=== PATIENT | female | born 1955 | race Caucasian/White ===

== ENCOUNTER 2018-09-26 14:58 | Inpatient (IN) | payer OTHER ==
[2018-09-26] MEDS: SODIUM CHLORIDE 0.9% 1L BAG IV* (15:45)
[2018-09-26] MEDS: PIPER-TAZO 3.375 GM IV (PMX) 100 ML IVPB (15:45)
[2018-09-26 15:47] LABS: ADD MAN DIFF? NO
[2018-09-26 15:52] LABS: BASOPHILS % 0.4 % (0.0-2.0); EOSINOPHILS % 0.3 % (0.0-7.0); HEMATOCRIT 42.3 % (37.0-47.0); HEMOGLOBIN 13.3 g/dl (12.0-16.0); LYMPHOCYTES % 14.3 % (15.0-51.0); MEAN CORPUSCULAR HEMOGLOBIN 27.6 pg (29.0-33.0); MEAN CORPUSCULAR HGB CONC 31.4 g/dl (32.0-37.0); MEAN CORPUSCULAR VOLUME 87.8 fl (82.0-101.0); MEAN PLATELET VOLUME 8.6 fl (7.4-10.4); MONOCYTE # 0.4 10^3/ul (0.3-0.9); MONOCYTES % 5.5 % (0.0-11.0); NEUTROPHIL # 5.5 10^3/ul (1.6-7.5); NEUTROPHILS % 78.6 % (39.0-77.0); PLATELET COUNT 298 10^3/UL (140-415); RED BLOOD COUNT 4.82 10^6/ul (4.20-5.40); RED CELL DISTRIBUTION WIDTH 16.4 % (11.5-14.5)
[2018-09-26 15:52] LABS: WHITE BLOOD COUNT 7.1 10^3/ul (4.8-10.8)
[2018-09-26 16:06] LABS: INR 0.85; PROTIME 11.7 Sec (11.9-14.9); PT RATIO 0.9
[2018-09-26 16:07] LABS: PARTIAL THROMBOPLASTIN TIME 25.8 Sec (23.0-35.0)
[2018-09-26 16:10] LABS: LACTIC ACID 1.5 mmol/L (0.5-2.0)
[2018-09-26 16:10] LABS: ALANINE AMINOTRANSFERASE 92 IU/L (13-69); ALBUMIN 3.7 g/dl (3.3-4.9); ALKALINE PHOSPHATASE 239 IU/L (42-121); ANION GAP 19 (5-13); ASPARTATE AMINO TRANSFERASE 155 IU/L (15-46); BILIRUBIN,INDIRECT 0.1 mg/dl (0-1.1); BILIRUBIN,TOTAL 0.1 mg/dl (0.2-1.3); BLOOD UREA NITROGEN 14 mg/dl (7-20); CALCIUM 9.5 mg/dl (8.4-10.2); CARBON DIOXIDE 18 mmol/L (21-31); CHLORIDE 98 mmol/L (97-110); CREATININE 0.63 mg/dl (0.44-1.00); Estimated GFR > 60 mL/min (>60); POTASSIUM 3.8 mmol/L (3.5-5.1); TOTAL PROTEIN 8.3 g/dl (6.1-8.1)
[2018-09-26 16:15] LABS: GLUCOSE 604 mg/dl (70-220); SODIUM 135 mmol/L (135-144)
[2018-09-26 16:23] LABS: TROPONIN-I < 0.012 ng/ml (0.000-0.120)
[2018-09-26 17:15] LABS: ADD UMIC YES; UR ASCORBIC ACID NEGATIVE (NEGATIVE); UR BILIRUBIN (Dip) NEGATIVE (NEGATIVE); UR BLOOD (Dip) 1+ mg/dL (NEGATIVE); UR CLARITY SLIGHTLY CLOUDY (CLEAR); UR COLOR STRAW (YELLOW); UR GLUCOSE (Dip) 3+ mg/dL (NEGATIVE); UR KETONES (Dip) 2+ mg/dL (NEGATIVE); UR LEUKOCYTE ESTERASE (Dip) NEGATIVE Leu/ul (NEGATIVE); UR NITRITE (Dip) NEGATIVE (NEGATIVE); UR RBC 7 /HPF (0-5); UR SPECIFIC GRAVITY (Dip) 1.025 (1.003-1.030); UR TOTAL PROTEIN (Dip) 1+ mg/dl (NEGATIVE); UR UROBILINOGEN (Dip) NEGATIVE (NEGATIVE); UR WBC 6 /HPF (0-5)
[2018-09-26] MEDS: VANCOMYCIN 1 GM (PMX) 250 ML IVPB (17:52)
[2018-09-26] MEDS: INSULIN LISPRO 100 UNIT/ML VIAL SC (17:53)
[2018-09-26] MEDS ORDERED: ACETAMINOPHEN 325 MG TAB PO ×2 (18:00→18:30)
[2018-09-26] MEDS ORDERED: ONDANSETRON 4 MG INJ IV (18:00)
[2018-09-26] MEDS ORDERED: VANCOMYCIN IV PER PHARMACY XX (18:30)
[2018-09-26] MEDS ORDERED: NACL 0.9% 3 ML SYG IV (18:30)
[2018-09-26] MEDS ORDERED: GLUCAGON 1 MG INJ IM (19:00)
[2018-09-26] MEDS ORDERED: GLUCOSE GEL 15 GRAM TUBE BUCCAL (19:00)
[2018-09-26] MEDS ORDERED: DEXTROSE 50% 50 ML SYRINGE IV ×2 (19:00)
[2018-09-26] MEDS ORDERED: GLUCOSE GEL 15 GRAM TUBE PO ×2 (19:00)
[2018-09-26] MEDS: INSULIN GLARGINE [LANTus] (100 UNITS/ML) SYG SC (20:03)
[2018-09-26] MEDS: INSULIN ASPART [NOVOLOG] 3 ML PEN SC (20:05)
[2018-09-26 22:19] LABS: LACTIC ACID 2.3 mmol/L (0.5-2.0)
[2018-09-27] MEDS: traMADol 50 MG TAB PO ×3 (00:50→20:59)
[2018-09-27] MEDS: PIPER-TAZO 3.375 GM IV (PMX) 100 ML IVPB ×4 (00:50→22:41)
[2018-09-27] MEDS: HEPARIN 5,000 UNIT/1 ML VIAL SC ×2 (01:08→06:22)
[2018-09-27] MEDS: ACCU-CHEK XX (02:02)
[2018-09-27] MEDS: INSULIN ASPART [NOVOLOG] 3 ML PEN SC ×9 (04:57→21:04)
[2018-09-27] MEDS: VANCOMYCIN 750 MG (PMX) 250 ML IVPB ×2 (06:12→15:44)
[2018-09-27 06:22] LABS: ADD MAN DIFF? NO
[2018-09-27 06:32] LABS: BASOPHILS % 0.3 % (0.0-2.0); EOSINOPHILS % 0.5 % (0.0-7.0); HEMATOCRIT 38.2 % (37.0-47.0); LYMPHOCYTES # 0.9 10^3/ul (0.8-2.9); LYMPHOCYTES % 14.6 % (15.0-51.0); MEAN CORPUSCULAR HEMOGLOBIN 27.5 pg (29.0-33.0); MEAN CORPUSCULAR HGB CONC 31.4 g/dl (32.0-37.0); MEAN CORPUSCULAR VOLUME 87.6 fl (82.0-101.0); MEAN PLATELET VOLUME 9.3 fl (7.4-10.4); MONOCYTE # 0.4 10^3/ul (0.3-0.9); MONOCYTES % 6.1 % (0.0-11.0); NEUTROPHIL # 4.6 10^3/ul (1.6-7.5); NEUTROPHILS % 77.7 % (39.0-77.0); PLATELET COUNT 259 10^3/UL (140-415); RED BLOOD COUNT 4.36 10^6/ul (4.20-5.40); RED CELL DISTRIBUTION WIDTH 16.5 % (11.5-14.5)
[2018-09-27 07:17] LABS: ALANINE AMINOTRANSFERASE 96 IU/L (13-69); ALBUMIN 3.1 g/dl (3.3-4.9); ALBUMIN/GLOBULIN RATIO 0.79; ALKALINE PHOSPHATASE 192 IU/L (42-121); ANION GAP 12 (5-13); ASPARTATE AMINO TRANSFERASE 158 IU/L (15-46); BILIRUBIN,INDIRECT 0.1 mg/dl (0-1.1); BILIRUBIN,TOTAL 0.1 mg/dl (0.2-1.3); BLOOD UREA NITROGEN 17 mg/dl (7-20); CALCIUM 8.8 mg/dl (8.4-10.2); CARBON DIOXIDE 26 mmol/L (21-31); CHLORIDE 95 mmol/L (97-110); CREATININE 0.63 mg/dl (0.44-1.00); Estimated GFR > 60 mL/min (>60); MAGNESIUM 1.5 mg/dl (1.7-2.5); PHOSPHORUS 3.5 mg/dl (2.5-4.9); POTASSIUM 3.8 mmol/L (3.5-5.1); SODIUM 133 mmol/L (135-144)
[2018-09-27 07:20] LABS: GLUCOSE 535 mg/dl (70-220)
[2018-09-27 07:25] LABS: HEMOGLOBIN A1C 12.6 % (0-5.9)
[2018-09-27] MEDS: SOD CHLORIDE 0.9% 500 ML IV (07:50)
[2018-09-27 11:08] LABS: LACTIC ACID 5.6 mmol/L (0.5-2.0)
[2018-09-27 12:06] LABS: C-REACTIVE PROTEIN 1.7 mg/dl (0.0-0.9)
[2018-09-27] MEDS: ASPIRIN (EC) 81 MG TAB PO (13:13)
[2018-09-27 13:14] LABS: ERYTHROCYTE SEDIMENTATION RATE 43 mm/Hr (0-30)
[2018-09-27] MEDS: INSULIN GLARGINE [LANTus] (100 UNITS/ML) SYG SC (20:00)
[2018-09-27] MEDS: LACTOBACILLUS RHAMNOSUS CAP PO (20:56)
[2018-09-27] MEDS: ESCITALOPRAM 10 MG TAB PO (20:56)
[2018-09-28] MEDS: ACCU-CHEK XX (02:00)
[2018-09-28] MEDS: VANCOMYCIN 750 MG (PMX) 250 ML IVPB (03:22)
[2018-09-28 03:44] LABS: VANCOMYCIN,TROUGH 9.7 ug/ml (10.0-20.0)
[2018-09-28] MEDS: PIPER-TAZO 3.375 GM IV (PMX) 100 ML IVPB ×3 (05:35→21:41)
[2018-09-28] MEDS: ASPIRIN (EC) 81 MG TAB PO (07:54)
[2018-09-28] MEDS: LACTOBACILLUS RHAMNOSUS CAP PO ×2 (07:54→20:31)
[2018-09-28] MEDS: SODIUM HYPOCHLORITE (1/40) 1 LITER BTL IRR (07:54)
[2018-09-28] MEDS: ESCITALOPRAM 10 MG TAB PO (07:54)
[2018-09-28] MEDS: INSULIN ASPART [NOVOLOG] 3 ML PEN SC ×7 (08:15→20:42)
[2018-09-28] MEDS: ENOXAPARIN 30 MG/0.3 ML SYG SC (08:23)
[2018-09-28 08:44] LABS: ADD MAN DIFF? NO
[2018-09-28 08:55] LABS: WHITE BLOOD COUNT 5.2 10^3/ul (4.8-10.8)
[2018-09-28 08:55] LABS: BASOPHILS % 0.6 % (0.0-2.0); EOSINOPHILS # 0.1 10^3/ul (0.0-0.5); HEMATOCRIT 36.4 % (37.0-47.0); HEMOGLOBIN 11.6 g/dl (12.0-16.0); LYMPHOCYTES # 1.2 10^3/ul (0.8-2.9); LYMPHOCYTES % 22.6 % (15.0-51.0); MEAN CORPUSCULAR HEMOGLOBIN 27.3 pg (29.0-33.0); MEAN CORPUSCULAR HGB CONC 31.9 g/dl (32.0-37.0); MEAN CORPUSCULAR VOLUME 85.6 fl (82.0-101.0); MEAN PLATELET VOLUME 9.2 fl (7.4-10.4); MONOCYTE # 0.4 10^3/ul (0.3-0.9); MONOCYTES % 7.4 % (0.0-11.0); NEUTROPHIL # 3.5 10^3/ul (1.6-7.5); NEUTROPHILS % 67.4 % (39.0-77.0); PLATELET COUNT 233 10^3/UL (140-415); RED BLOOD COUNT 4.25 10^6/ul (4.20-5.40); RED CELL DISTRIBUTION WIDTH 16.7 % (11.5-14.5)
[2018-09-28 10:04] LABS: ALANINE AMINOTRANSFERASE 108 IU/L (13-69); ALBUMIN 3.1 g/dl (3.3-4.9); ALBUMIN/GLOBULIN RATIO 0.79; ALKALINE PHOSPHATASE 180 IU/L (42-121); ANION GAP 11 (5-13); ASPARTATE AMINO TRANSFERASE 179 IU/L (15-46); BILIRUBIN,INDIRECT 0.1 mg/dl (0-1.1); BILIRUBIN,TOTAL 0.1 mg/dl (0.2-1.3); BLOOD UREA NITROGEN 15 mg/dl (7-20); CALCIUM 8.6 mg/dl (8.4-10.2); CARBON DIOXIDE 26 mmol/L (21-31); CHLORIDE 98 mmol/L (97-110); CHOL/HDL RATIO 3.2 RATIO; CHOLESTEROL 134 mg/dl (100-200); CREATININE 0.52 mg/dl (0.44-1.00); Estimated GFR > 60 mL/min (>60); GLUCOSE 346 mg/dl (70-220); HDL CHOLESTEROL 41 mg/dl (35-98); LDL CHOLESTEROL,CALCULATED 62 mg/dl; POTASSIUM 3.3 mmol/L (3.5-5.1); SODIUM 135 mmol/L (135-144); TRIGLYCERIDES 154 mg/dl (0-149)
[2018-09-28] MEDS ORDERED: NICOTINE (14 MG/24 HR) PATCH TRANSDERM (12:00)
[2018-09-28] MEDS: traMADol 50 MG TAB PO ×2 (12:15→20:31)
[2018-09-28] MEDS: POTASSIUM CHLORIDE 20 MEQ POWDER FOR ORAL SOLN PO (12:46)
[2018-09-28] MEDS: VANCOMYCIN 1 GM 250 ML IVPB (16:43)
[2018-09-28] MEDS: INSULIN GLARGINE [LANTus] (100 UNITS/ML) SYG SC (20:41)
[2018-09-29] MEDS: ACCU-CHEK XX (02:00)
[2018-09-29] MEDS: VANCOMYCIN 1 GM 250 ML IVPB ×2 (03:07→16:41)
[2018-09-29] MEDS: PIPER-TAZO 3.375 GM IV (PMX) 100 ML IVPB ×3 (06:16→21:25)
[2018-09-29 06:27] LABS: ADD MAN DIFF? NO; HAAIG REFLEX REFLEX FILED
[2018-09-29 06:30] LABS: WHITE BLOOD COUNT 5.1 10^3/ul (4.8-10.8)
[2018-09-29 06:30] LABS: BASOPHILS % 0.6 % (0.0-2.0); EOSINOPHILS # 0.1 10^3/ul (0.0-0.5); HEMATOCRIT 35.8 % (37.0-47.0); HEMOGLOBIN 11.2 g/dl (12.0-16.0); LYMPHOCYTES # 1.3 10^3/ul (0.8-2.9); MEAN CORPUSCULAR HEMOGLOBIN 27.6 pg (29.0-33.0); MEAN CORPUSCULAR HGB CONC 31.3 g/dl (32.0-37.0); MEAN CORPUSCULAR VOLUME 88.2 fl (82.0-101.0); MEAN PLATELET VOLUME 8.9 fl (7.4-10.4); MONOCYTE # 0.5 10^3/ul (0.3-0.9); MONOCYTES % 9.6 % (0.0-11.0); NEUTROPHIL # 3.2 10^3/ul (1.6-7.5); NEUTROPHILS % 62.8 % (39.0-77.0); PLATELET COUNT 207 10^3/UL (140-415); RED BLOOD COUNT 4.06 10^6/ul (4.20-5.40); RED CELL DISTRIBUTION WIDTH 16.9 % (11.5-14.5)
[2018-09-29 06:51] LABS: AMMONIA < 9 umol/l (9-30)
[2018-09-29 06:52] LABS: ALANINE AMINOTRANSFERASE 113 IU/L (13-69); ALBUMIN 2.9 g/dl (3.3-4.9); ALBUMIN/GLOBULIN RATIO 0.74; ALKALINE PHOSPHATASE 161 IU/L (42-121); ANION GAP 6 (5-13); ASPARTATE AMINO TRANSFERASE 174 IU/L (15-46); BILIRUBIN,INDIRECT 0.1 mg/dl (0-1.1); BILIRUBIN,TOTAL 0.1 mg/dl (0.2-1.3); BLOOD UREA NITROGEN 15 mg/dl (7-20); CALCIUM 8.6 mg/dl (8.4-10.2); CARBON DIOXIDE 27 mmol/L (21-31); CHLORIDE 103 mmol/L (97-110); CREATININE 0.55 mg/dl (0.44-1.00); Estimated GFR > 60 mL/min (>60); GLUCOSE 169 mg/dl (70-220); POTASSIUM 3.3 mmol/L (3.5-5.1); SODIUM 136 mmol/L (135-144); TOTAL PROTEIN 6.8 g/dl (6.1-8.1)
[2018-09-29 07:25] LABS: HEPATITIS B SURFACE ANTIGEN NEGATIVE (NEGATIVE)
[2018-09-29 07:43] LABS: HEPATITIS B CORE ANTIBODY NEGATIVE (NEGATIVE)
[2018-09-29 07:44] LABS: HEPATITIS C VIRAL ANTIBODY REACTIVE (NEGATIVE)
[2018-09-29] MEDS: INSULIN ASPART [NOVOLOG] 3 ML PEN SC ×7 (07:55→22:00)
[2018-09-29] MEDS ORDERED: AMMONIUM LACTATE 5% TOP (09:00)
[2018-09-29] MEDS: POTASSIUM CHLORIDE 20 MEQ POWDER FOR ORAL SOLN PO (09:00)
[2018-09-29] MEDS: ASPIRIN (EC) 81 MG TAB PO (09:00)
[2018-09-29] MEDS: LACTOBACILLUS RHAMNOSUS CAP PO ×2 (09:00→21:24)
[2018-09-29] MEDS: ESCITALOPRAM 10 MG TAB PO (09:00)
[2018-09-29] MEDS: AMMONIUM LACTATE 12% 225 GM LOT TOP (09:00)
[2018-09-29] MEDS: SODIUM HYPOCHLORITE (1/40) 1 LITER BTL IRR (09:01)
[2018-09-29] MEDS ORDERED: FENTAnyl 50 MCG/ML VIAL (11:44)
[2018-09-29] MEDS ORDERED: MIDAZOLAM 1 MG/ML 2 ML INJ ×2 (11:44→12:58)
[2018-09-29] MEDS ORDERED: HEPARIN 1000 UNITS/ML 10 ML INJ (11:57)
[2018-09-29] MEDS ORDERED: HEPARIN 1000 UNITS/NS (A-LINE) 1,000 ML (12:06)
[2018-09-29] MEDS ORDERED: IODIXANOL LOCM 100 ML BTL (12:06)
[2018-09-29] MEDS ORDERED: LIDOCAINE 1% (MDV) 20 ML INJ (12:06)
[2018-09-29] MEDS: MIDAZOLAM 1 MG/ML 2 ML INJ IV (13:32)
[2018-09-29] MEDS: POTASSIUM CHLORIDE 100 ML IVPB (14:04)
[2018-09-29] MEDS: traMADol 50 MG TAB PO ×2 (14:37→21:17)
[2018-09-29] MEDS: INFLUENZA VIRUS VACCINE 0.5 ML (DISPENSING) IM* (14:42)
[2018-09-29] MEDS: ENOXAPARIN 30 MG/0.3 ML SYG SC (15:27)
[2018-09-29] MEDS: ZOLPIDEM 5 MG TAB PO (21:17)
[2018-09-29] MEDS: INSULIN GLARGINE [LANTus] (100 UNITS/ML) SYG SC (22:10)
[2018-09-30] MEDS: ACCU-CHEK XX (02:36)
[2018-09-30] MEDS: INSULIN ASPART [NOVOLOG] 3 ML PEN SC ×8 (02:44→21:00)
[2018-09-30 03:45] LABS: ADD MAN DIFF? NO
[2018-09-30 04:09] LABS: WHITE BLOOD COUNT 5.2 10^3/ul (4.8-10.8)
[2018-09-30 04:09] LABS: BASOPHILS % 0.4 % (0.0-2.0); EOSINOPHILS # 0.1 10^3/ul (0.0-0.5); HEMATOCRIT 35.6 % (37.0-47.0); LYMPHOCYTES # 0.9 10^3/ul (0.8-2.9); LYMPHOCYTES % 17.8 % (15.0-51.0); MEAN CORPUSCULAR HEMOGLOBIN 27.4 pg (29.0-33.0); MEAN CORPUSCULAR HGB CONC 30.9 g/dl (32.0-37.0); MEAN CORPUSCULAR VOLUME 88.6 fl (82.0-101.0); MEAN PLATELET VOLUME 9.2 fl (7.4-10.4); MONOCYTE # 0.4 10^3/ul (0.3-0.9); MONOCYTES % 6.8 % (0.0-11.0); NEUTROPHIL # 3.8 10^3/ul (1.6-7.5); NEUTROPHILS % 73.4 % (39.0-77.0); PLATELET COUNT 190 10^3/UL (140-415); RED BLOOD COUNT 4.02 10^6/ul (4.20-5.40); RED CELL DISTRIBUTION WIDTH 16.9 % (11.5-14.5)
[2018-09-30 04:10] LABS: ALANINE AMINOTRANSFERASE 149 IU/L (13-69); ALBUMIN 2.9 g/dl (3.3-4.9); ALBUMIN/GLOBULIN RATIO 0.74; ALKALINE PHOSPHATASE 165 IU/L (42-121); ANION GAP 7 (5-13); ASPARTATE AMINO TRANSFERASE 230 IU/L (15-46); BILIRUBIN,INDIRECT 0.1 mg/dl (0-1.1); BILIRUBIN,TOTAL 0.1 mg/dl (0.2-1.3); BLOOD UREA NITROGEN 16 mg/dl (7-20); CALCIUM 8.6 mg/dl (8.4-10.2); CARBON DIOXIDE 28 mmol/L (21-31); CHLORIDE 102 mmol/L (97-110); CREATININE 0.66 mg/dl (0.44-1.00); Estimated GFR > 60 mL/min (>60); GLUCOSE 297 mg/dl (70-220); POTASSIUM 3.3 mmol/L (3.5-5.1); SODIUM 137 mmol/L (135-144); TOTAL PROTEIN 6.8 g/dl (6.1-8.1)
[2018-09-30 04:11] LABS: MAGNESIUM 1.6 mg/dl (1.7-2.5)
[2018-09-30] MEDS: VANCOMYCIN 1 GM 250 ML IVPB ×2 (04:17→16:12)
[2018-09-30 04:41] LABS: VANCOMYCIN,TROUGH 13.3 ug/ml (10.0-20.0)
[2018-09-30] MEDS: PIPER-TAZO 3.375 GM IV (PMX) 100 ML IVPB ×3 (06:14→22:09)
[2018-09-30] MEDS: LACTOBACILLUS RHAMNOSUS CAP PO ×2 (08:43→20:00)
[2018-09-30] MEDS: ASPIRIN (EC) 81 MG TAB PO (08:43)
[2018-09-30] MEDS: ESCITALOPRAM 10 MG TAB PO (08:43)
[2018-09-30] MEDS: POTASSIUM CHLORIDE 20 MEQ POWDER FOR ORAL SOLN PO (08:44)
[2018-09-30] MEDS: SODIUM HYPOCHLORITE (1/40) 1 LITER BTL IRR (08:44)
[2018-09-30] MEDS: AMMONIUM LACTATE 12% 225 GM LOT TOP (08:44)
[2018-09-30] MEDS: ENOXAPARIN 30 MG/0.3 ML SYG SC (09:15)
[2018-09-30] MEDS: MAGNESIUM OXIDE 400 MG TAB PO ×2 (12:39→20:00)
[2018-09-30] MEDS: LORAZEPAM 2 MG INJ IV (20:09)
[2018-09-30] MEDS: INSULIN GLARGINE [LANTus] (100 UNITS/ML) SYG SC (21:51)
[2018-10-01] MEDS: ACCU-CHEK XX (02:00)
[2018-10-01] MEDS: VANCOMYCIN 1 GM 250 ML IVPB (04:15)
[2018-10-01] MEDS: PIPER-TAZO 3.375 GM IV (PMX) 100 ML IVPB ×3 (06:00→21:00)
[2018-10-01] MEDS ORDERED: CEFAZOLIN 1 GM INJ (07:00)
[2018-10-01] MEDS ORDERED: NA BICARBONATE 8.4% 50 ML SYG (07:00)
[2018-10-01] MEDS ORDERED: ALBUMIN HUMAN 25% 100 ML INJ (07:00)
[2018-10-01] MEDS ORDERED: CA CHLORIDE 10% 10 ML SYRINGE (07:00)
[2018-10-01] MEDS ORDERED: HEPARIN 1000 UNITS/ML 10 ML INJ ×2 (07:54→10:11)
[2018-10-01] MEDS ORDERED: GELATIN SIZE 100 SPONGE (07:54)
[2018-10-01] MEDS ORDERED: THROMBIN (BOVINE) 5,000 UNIT VIAL TP ×2 (07:54→11:36)
[2018-10-01] MEDS: INSULIN ASPART [NOVOLOG] 3 ML PEN SC ×7 (07:55→20:59)
[2018-10-01] MEDS ORDERED: MIDAZOLAM 1 MG/ML 2 ML INJ (08:05)
[2018-10-01] MEDS ORDERED: FENTAnyl 50 MCG/ML VIAL (08:05)
[2018-10-01] MEDS ORDERED: LIDOCAINE 2% (SDV) 5 ML INJ (08:06)
[2018-10-01] MEDS ORDERED: ETOMIDATE 20 MG INJ (08:06)
[2018-10-01] MEDS ORDERED: FENTAnyl 50 MCG/ML VIAL IV ×2 (08:30)
[2018-10-01] MEDS ORDERED: HYDROmorphONE 1 MG/5 ML IV SYRINGE IV (08:30)
[2018-10-01] MEDS ORDERED: LABETALOL HCL 20MG INJ IV (08:30)
[2018-10-01] MEDS ORDERED: hydrALAzine 20 MG INJ IV (08:30)
[2018-10-01] MEDS ORDERED: MEPERIDINE 25 MG INJ IV (08:30)
[2018-10-01] MEDS ORDERED: ONDANSETRON 4 MG INJ IV (08:30)
[2018-10-01] MEDS ORDERED: LEVALBUTEROL (NEB) 1.25 MG/0.5 ML AMP HHN (08:30)
[2018-10-01] MEDS ORDERED: DIPHENHYDRAMINE 50 MG INJ IV (08:30)
[2018-10-01] MEDS ORDERED: IPRATROPIUM (NEB) 0.5 MG/2.5 ML AMP HHN (08:30)
[2018-10-01] MEDS ORDERED: MIDAZOLAM 1 MG/ML 2 ML INJ IV (08:30)
[2018-10-01] MEDS: HEPARIN 1000 UNITS/ML 10 ML INJ IRR (08:45)
[2018-10-01] MEDS: SODIUM HYPOCHLORITE (1/40) 1 LITER BTL IRR (09:00)
[2018-10-01] MEDS: POTASSIUM CHLORIDE 20 MEQ POWDER FOR ORAL SOLN PO ×2 (09:00→16:46)
[2018-10-01] MEDS: AMMONIUM LACTATE 12% 225 GM LOT TOP (09:00)
[2018-10-01] MEDS: ESCITALOPRAM 10 MG TAB PO (09:00)
[2018-10-01] MEDS: MAGNESIUM OXIDE 400 MG TAB PO ×3 (09:00→16:46)
[2018-10-01] MEDS: LACTOBACILLUS RHAMNOSUS CAP PO ×2 (09:00→20:51)
[2018-10-01] MEDS ORDERED: METOCLOPRAMIDE 10 MG INJ (09:55)
[2018-10-01] MEDS ORDERED: SUCCINYLCHOLINE CHLORIDE 100 MG/5 ML SYG IV (09:55)
[2018-10-01] MEDS ORDERED: ROCURONIUM 50 MG INJ (09:55)
[2018-10-01] MEDS: THROMBIN (BOVINE) 5,000 UNIT VIAL TP (11:05)
[2018-10-01] MEDS: GELATIN SIZE 100 SPONGE TOP (11:05)
[2018-10-01] MEDS ORDERED: PROTAMINE 250 MG INJ (11:31)
[2018-10-01 12:18] LABS: IMMEDIATE SPIN CROSSMATCH 1 2
[2018-10-01] MEDS: HYDROmorphONE 1 MG/5 ML IV SYRINGE IV (13:26)
[2018-10-01] MEDS: ONDANSETRON 4 MG INJ IV (13:28)
[2018-10-01 15:37] LABS: ADD MAN DIFF? NO
[2018-10-01 15:39] LABS: WHITE BLOOD COUNT 8.7 10^3/ul (4.8-10.8)
[2018-10-01 15:39] LABS: BASOPHILS % 0.3 % (0.0-2.0); EOSINOPHILS # 0.1 10^3/ul (0.0-0.5); EOSINOPHILS % 0.7 % (0.0-7.0); HEMATOCRIT 30.5 % (37.0-47.0); HEMOGLOBIN 9.5 g/dl (12.0-16.0); LYMPHOCYTES # 1.1 10^3/ul (0.8-2.9); LYMPHOCYTES % 12.6 % (15.0-51.0); MEAN CORPUSCULAR HEMOGLOBIN 27.7 pg (29.0-33.0); MEAN CORPUSCULAR HGB CONC 31.1 g/dl (32.0-37.0); MEAN CORPUSCULAR VOLUME 88.9 fl (82.0-101.0); MEAN PLATELET VOLUME 8.4 fl (7.4-10.4); MONOCYTE # 0.5 10^3/ul (0.3-0.9); MONOCYTES % 5.6 % (0.0-11.0); NEUTROPHILS % 80.1 % (39.0-77.0); PLATELET COUNT 129 10^3/UL (140-415); RED BLOOD COUNT 3.43 10^6/ul (4.20-5.40)
[2018-10-01 15:57] LABS: INR 0.97
[2018-10-01 16:04] LABS: ANION GAP 11 (5-13); BLOOD UREA NITROGEN 13 mg/dl (7-20); CALCIUM 8.4 mg/dl (8.4-10.2); CARBON DIOXIDE 25 mmol/L (21-31); CHLORIDE 102 mmol/L (97-110); CREATININE 0.51 mg/dl (0.44-1.00); Estimated GFR > 60 mL/min (>60); GLUCOSE 256 mg/dl (70-220); POTASSIUM 3.4 mmol/L (3.5-5.1); SODIUM 138 mmol/L (135-144)
[2018-10-01] MEDS: morphine 2 MG INJ IV ×3 (16:08→21:50)
[2018-10-01] MEDS: ASPIRIN 325 MG TAB PO (16:46)
[2018-10-01] MEDS: INSULIN GLARGINE [LANTus] (100 UNITS/ML) SYG SC ×2 (18:56→20:53)
[2018-10-02] MEDS: ACCU-CHEK XX (02:51)
[2018-10-02] MEDS: PIPER-TAZO 3.375 GM IV (PMX) 100 ML IVPB ×3 (05:47→20:11)
[2018-10-02] MEDS: INSULIN ASPART [NOVOLOG] 3 ML PEN SC ×7 (07:35→20:11)
[2018-10-02] MEDS: POTASSIUM CHLORIDE 20 MEQ POWDER FOR ORAL SOLN PO (08:31)
[2018-10-02] MEDS: ASPIRIN 325 MG TAB PO (08:31)
[2018-10-02] MEDS: ESCITALOPRAM 10 MG TAB PO (08:31)
[2018-10-02] MEDS: MAGNESIUM OXIDE 400 MG TAB PO ×3 (08:31→20:11)
[2018-10-02] MEDS: LACTOBACILLUS RHAMNOSUS CAP PO ×2 (08:31→20:10)
[2018-10-02] MEDS: AMMONIUM LACTATE 12% 225 GM LOT TOP (08:40)
[2018-10-02] MEDS: SODIUM HYPOCHLORITE (1/40) 1 LITER BTL IRR (08:40)
[2018-10-02] MEDS: morphine 2 MG INJ IV ×2 (09:54→19:05)
[2018-10-02] MEDS: ENOXAPARIN 30 MG/0.3 ML SYG SC (10:30)
[2018-10-02] MEDS: INSULIN GLARGINE [LANTus] (100 UNITS/ML) SYG SC (20:21)
[2018-10-03] MEDS: ZOLPIDEM 5 MG TAB PO (00:46)
[2018-10-03] MEDS: ACCU-CHEK XX (02:00)
[2018-10-03] MEDS: PIPER-TAZO 3.375 GM IV (PMX) 100 ML IVPB ×3 (05:45→21:05)
[2018-10-03 06:08] LABS: ADD MAN DIFF? NO
[2018-10-03 06:16] LABS: WHITE BLOOD COUNT 7.5 10^3/ul (4.8-10.8)
[2018-10-03 06:16] LABS: BASOPHILS % 0.1 % (0.0-2.0); EOSINOPHILS # 0.1 10^3/ul (0.0-0.5); EOSINOPHILS % 1.2 % (0.0-7.0); HEMATOCRIT 27.9 % (37.0-47.0); HEMOGLOBIN 8.8 g/dl (12.0-16.0); LYMPHOCYTES # 1.3 10^3/ul (0.8-2.9); LYMPHOCYTES % 17.3 % (15.0-51.0); MEAN CORPUSCULAR HEMOGLOBIN 27.9 pg (29.0-33.0); MEAN CORPUSCULAR HGB CONC 31.5 g/dl (32.0-37.0); MEAN CORPUSCULAR VOLUME 88.6 fl (82.0-101.0); MEAN PLATELET VOLUME 9.6 fl (7.4-10.4); MONOCYTE # 0.7 10^3/ul (0.3-0.9); MONOCYTES % 9.9 % (0.0-11.0); NEUTROPHIL # 5.3 10^3/ul (1.6-7.5); NEUTROPHILS % 70.7 % (39.0-77.0); PLATELET COUNT 154 10^3/UL (140-415); RED BLOOD COUNT 3.15 10^6/ul (4.20-5.40); RED CELL DISTRIBUTION WIDTH 17.6 % (11.5-14.5)
[2018-10-03 06:37] LABS: MAGNESIUM 1.9 mg/dl (1.7-2.5)
[2018-10-03 07:07] LABS: ANION GAP 8 (5-13); BLOOD UREA NITROGEN 18 mg/dl (7-20); CALCIUM 8.3 mg/dl (8.4-10.2); CARBON DIOXIDE 26 mmol/L (21-31); CHLORIDE 103 mmol/L (97-110); CREATININE 0.57 mg/dl (0.44-1.00); Estimated GFR > 60 mL/min (>60); GLUCOSE 96 mg/dl (70-220); POTASSIUM 3.1 mmol/L (3.5-5.1); SODIUM 137 mmol/L (135-144)
[2018-10-03] MEDS: INSULIN ASPART [NOVOLOG] 3 ML PEN SC ×7 (08:00→21:27)
[2018-10-03] MEDS: ESCITALOPRAM 10 MG TAB PO (08:27)
[2018-10-03] MEDS: POTASSIUM CHLORIDE 20 MEQ POWDER FOR ORAL SOLN PO (08:27)
[2018-10-03] MEDS: LACTOBACILLUS RHAMNOSUS CAP PO ×2 (08:27→21:04)
[2018-10-03] MEDS: ASPIRIN 325 MG TAB PO (08:28)
[2018-10-03] MEDS: MAGNESIUM OXIDE 400 MG TAB PO ×3 (08:28→21:04)
[2018-10-03] MEDS: SODIUM HYPOCHLORITE (1/40) 1 LITER BTL IRR (08:29)
[2018-10-03] MEDS: AMMONIUM LACTATE 12% 225 GM LOT TOP (08:29)
[2018-10-03] MEDS: ENOXAPARIN 30 MG/0.3 ML SYG SC (09:21)
[2018-10-03] MEDS: morphine 2 MG INJ IV ×2 (14:42→21:05)
[2018-10-03] MEDS: INSULIN GLARGINE [LANTus] (100 UNITS/ML) SYG SC (21:28)
[2018-10-04] MEDS: ACCU-CHEK XX (02:25)
[2018-10-04] MEDS: morphine 2 MG INJ IV ×3 (02:29→19:38)
[2018-10-04] MEDS: PIPER-TAZO 3.375 GM IV (PMX) 100 ML IVPB ×3 (06:04→21:06)
[2018-10-04 06:14] LABS: WHITE BLOOD COUNT 6.7 10^3/ul (4.8-10.8)
[2018-10-04 06:14] LABS: HEMATOCRIT 27.9 % (37.0-47.0); HEMOGLOBIN 8.7 g/dl (12.0-16.0); MEAN CORPUSCULAR HEMOGLOBIN 27.7 pg (29.0-33.0); MEAN CORPUSCULAR HGB CONC 31.2 g/dl (32.0-37.0); MEAN CORPUSCULAR VOLUME 88.9 fl (82.0-101.0); MEAN PLATELET VOLUME 9.3 fl (7.4-10.4); PLATELET COUNT 170 10^3/UL (140-415); RED BLOOD COUNT 3.14 10^6/ul (4.20-5.40); RED CELL DISTRIBUTION WIDTH 17.9 % (11.5-14.5)
[2018-10-04 06:22] LABS: ADD MAN DIFF? YES; POSITIVE DIFF @See below
[2018-10-04 07:15] LABS: ANION GAP 6 (5-13); BLOOD UREA NITROGEN 17 mg/dl (7-20); CALCIUM 8.3 mg/dl (8.4-10.2); CARBON DIOXIDE 28 mmol/L (21-31); CHLORIDE 103 mmol/L (97-110); CREATININE 0.54 mg/dl (0.44-1.00); Estimated GFR > 60 mL/min (>60); GLUCOSE 135 mg/dl (70-220); POTASSIUM 3.3 mmol/L (3.5-5.1); SODIUM 137 mmol/L (135-144)
[2018-10-04 07:55] LABS: ANISOCYTOSIS 1+ (0-0); BAND NEUTROPHILS % (M) 1 % (0-4); LYMPHOCYTES #M 1.2 10^3/ul (0.8-2.9); LYMPHOCYTES % (M) 19 % (15-51); MICROCYTOSIS 1+ (0-0); MONOCYTE #M 0.2 10^3/ul (0.3-0.9); MONOCYTES % (M) 4 % (0-11); OVALOCYTES 1+ (0-0); PLATELET ESTIMATE NORMAL; POLYCHROMASIA 2+ (0-0); SEG NEUT #M 5.1 10^3/ul (1.6-7.5); SEGMENTED NEUTROPHILS (M) % 76 % (39-77)
[2018-10-04] MEDS: INSULIN ASPART [NOVOLOG] 3 ML PEN SC ×7 (07:58→20:17)
[2018-10-04] MEDS: POTASSIUM CHLORIDE 20 MEQ POWDER FOR ORAL SOLN PO (08:43)
[2018-10-04] MEDS: SODIUM HYPOCHLORITE (1/40) 1 LITER BTL IRR (08:43)
[2018-10-04] MEDS: ASPIRIN 325 MG TAB PO (08:43)
[2018-10-04] MEDS: MAGNESIUM OXIDE 400 MG TAB PO ×3 (08:43→20:09)
[2018-10-04] MEDS: ESCITALOPRAM 10 MG TAB PO (08:43)
[2018-10-04] MEDS: AMMONIUM LACTATE 12% 225 GM LOT TOP (08:43)
[2018-10-04] MEDS: LACTOBACILLUS RHAMNOSUS CAP PO ×2 (08:43→20:09)
[2018-10-04] MEDS: ENOXAPARIN 30 MG/0.3 ML SYG SC (08:53)
[2018-10-04] MEDS: POTASSIUM CHLORIDE (SR) 20 MEQ TAB PO (17:32)
[2018-10-04] MEDS: traZODone 50 MG TAB PO (20:09)
[2018-10-04] MEDS: INSULIN GLARGINE [LANTus] (100 UNITS/ML) SYG SC (20:18)
[2018-10-05] MEDS: ACCU-CHEK XX (02:00)
[2018-10-05 05:28] LABS: ADD MAN DIFF? NO
[2018-10-05] MEDS: PIPER-TAZO 3.375 GM IV (PMX) 100 ML IVPB ×3 (05:34→22:19)
[2018-10-05 05:38] LABS: BASOPHILS % 0.4 % (0.0-2.0); EOSINOPHILS # 0.2 10^3/ul (0.0-0.5); EOSINOPHILS % 2.9 % (0.0-7.0); HEMATOCRIT 27.9 % (37.0-47.0); HEMOGLOBIN 8.7 g/dl (12.0-16.0); LYMPHOCYTES % 18.7 % (15.0-51.0); MEAN CORPUSCULAR HEMOGLOBIN 28.1 pg (29.0-33.0); MEAN CORPUSCULAR HGB CONC 31.2 g/dl (32.0-37.0); MEAN PLATELET VOLUME 9.2 fl (7.4-10.4); MONOCYTE # 0.5 10^3/ul (0.3-0.9); MONOCYTES % 9.6 % (0.0-11.0); NEUTROPHIL # 3.6 10^3/ul (1.6-7.5); NEUTROPHILS % 67.8 % (39.0-77.0); PLATELET COUNT 205 10^3/UL (140-415); RED CELL DISTRIBUTION WIDTH 17.9 % (11.5-14.5)
[2018-10-05 05:38] LABS: WHITE BLOOD COUNT 5.2 10^3/ul (4.8-10.8)
[2018-10-05 06:02] LABS: ANION GAP 4 (5-13); BLOOD UREA NITROGEN 17 mg/dl (7-20); CALCIUM 8.5 mg/dl (8.4-10.2); CARBON DIOXIDE 28 mmol/L (21-31); CHLORIDE 106 mmol/L (97-110); CREATININE 0.61 mg/dl (0.44-1.00); Estimated GFR > 60 mL/min (>60); GLUCOSE 165 mg/dl (70-220); POTASSIUM 3.9 mmol/L (3.5-5.1); SODIUM 138 mmol/L (135-144)
[2018-10-05] MEDS ORDERED: MINERAL OIL LIGHT 10 ML VIAL (06:45)
[2018-10-05] MEDS ORDERED: LIDOCAINE 1% (MPF) 30 ML INJ (06:45)
[2018-10-05] MEDS ORDERED: PROPOFOL 20 ML (07:02)
[2018-10-05] MEDS ORDERED: FENTAnyl 50 MCG/ML VIAL (07:02)
[2018-10-05] MEDS ORDERED: LIDOCAINE 2% (SDV) 5 ML INJ (07:02)
[2018-10-05] MEDS ORDERED: MIDAZOLAM 1 MG/ML 2 ML INJ (07:02)
[2018-10-05 07:10] LABS: PHOSPHORUS 3.3 mg/dl (2.5-4.9)
[2018-10-05 07:10] LABS: MAGNESIUM 2.2 mg/dl (1.7-2.5)
[2018-10-05] MEDS: BUPIVACAINE 0.25% (MPF) 10 ML 10 ML VIAL INJ (07:30)
[2018-10-05] MEDS: POLYMYXIN/BACITRACIN 1L IRRIG IRR (07:30)
[2018-10-05] MEDS: LIDOCAINE 1% (MPF) 30 ML INJ INJ (07:30)
[2018-10-05] MEDS: INSULIN ASPART [NOVOLOG] 3 ML PEN SC ×7 (08:00→20:25)
[2018-10-05] MEDS ORDERED: BUPIVACAINE 0.25% (MPF) 30 ML INJ (08:02)
[2018-10-05] MEDS ORDERED: OXYCODONE/ACETAMINOPHEN (5/325) TAB PO (09:00)
[2018-10-05] MEDS ORDERED: hydrALAzine 20 MG INJ IV (09:00)
[2018-10-05] MEDS ORDERED: LABETALOL HCL 20MG INJ IV (09:00)
[2018-10-05] MEDS ORDERED: DIPHENHYDRAMINE 50 MG INJ IV (09:00)
[2018-10-05] MEDS: MAGNESIUM OXIDE 400 MG TAB PO ×4 (09:00→20:37)
[2018-10-05] MEDS ORDERED: morphine (1 MG/ML) 10ML SYRINGE IV (09:00)
[2018-10-05] MEDS ORDERED: ONDANSETRON 4 MG INJ IV (09:00)
[2018-10-05] MEDS ORDERED: FENTAnyl 50 MCG/ML VIAL IV (09:00)
[2018-10-05] MEDS ORDERED: EPHEDrine SULFATE 50 MG/5 ML SYG IV (09:00)
[2018-10-05] MEDS: SODIUM HYPOCHLORITE (1/40) 1 LITER BTL IRR (09:00)
[2018-10-05] MEDS ORDERED: ALBUTEROL 0.083% (NEB) 2.5 MG/3 ML AMP HHN (09:00)
[2018-10-05] MEDS ORDERED: ATROPINE 1 MG/10 ML SYRINGE IV (09:00)
[2018-10-05] MEDS: HYDROmorphONE 1 MG/5 ML IV SYRINGE IV (09:34)
[2018-10-05] MEDS: ESCITALOPRAM 10 MG TAB PO (10:48)
[2018-10-05] MEDS: POTASSIUM CHLORIDE 20 MEQ POWDER FOR ORAL SOLN PO (10:48)
[2018-10-05] MEDS: LACTOBACILLUS RHAMNOSUS CAP PO ×2 (10:48→20:37)
[2018-10-05] MEDS: AMMONIUM LACTATE 12% 225 GM LOT TOP (10:50)
[2018-10-05] MEDS: ENOXAPARIN 30 MG/0.3 ML SYG SC (10:56)
[2018-10-05] MEDS: ASPIRIN 325 MG TAB PO (13:32)
[2018-10-05] MEDS: morphine 2 MG INJ IV ×3 (13:52→19:48)
[2018-10-05] MEDS: traZODone 50 MG TAB PO (20:37)
[2018-10-05] MEDS: INSULIN GLARGINE [LANTus] (100 UNITS/ML) SYG SC (20:40)
[2018-10-06] MEDS: ACCU-CHEK XX (01:14)
[2018-10-06] MEDS: PIPER-TAZO 3.375 GM IV (PMX) 100 ML IVPB ×2 (05:05→14:18)
[2018-10-06] MEDS: morphine 2 MG INJ IV ×7 (05:05→20:58)
[2018-10-06 05:32] LABS: ADD MAN DIFF? NO
[2018-10-06 06:19] LABS: PHOSPHORUS 4.4 mg/dl (2.5-4.9)
[2018-10-06 06:19] LABS: ANION GAP 4 (5-13); BLOOD UREA NITROGEN 19 mg/dl (7-20); CALCIUM 8.6 mg/dl (8.4-10.2); CARBON DIOXIDE 29 mmol/L (21-31); CHLORIDE 104 mmol/L (97-110); CREATININE 0.77 mg/dl (0.44-1.00); Estimated GFR > 60 mL/min (>60); GLUCOSE 118 mg/dl (70-220); MAGNESIUM 2.1 mg/dl (1.7-2.5); POTASSIUM 4.4 mmol/L (3.5-5.1); SODIUM 137 mmol/L (135-144)
[2018-10-06 06:21] LABS: WHITE BLOOD COUNT 5.1 10^3/ul (4.8-10.8)
[2018-10-06 06:21] LABS: BASOPHILS % 0.6 % (0.0-2.0); EOSINOPHILS # 0.2 10^3/ul (0.0-0.5); EOSINOPHILS % 3.1 % (0.0-7.0); HEMATOCRIT 27.3 % (37.0-47.0); HEMOGLOBIN 8.4 g/dl (12.0-16.0); LYMPHOCYTES # 1.2 10^3/ul (0.8-2.9); LYMPHOCYTES % 23.4 % (15.0-51.0); MEAN CORPUSCULAR HEMOGLOBIN 28.2 pg (29.0-33.0); MEAN CORPUSCULAR HGB CONC 30.8 g/dl (32.0-37.0); MEAN CORPUSCULAR VOLUME 91.6 fl (82.0-101.0); MEAN PLATELET VOLUME 9.4 fl (7.4-10.4); MONOCYTE # 0.5 10^3/ul (0.3-0.9); MONOCYTES % 9.3 % (0.0-11.0); NEUTROPHIL # 3.2 10^3/ul (1.6-7.5); NEUTROPHILS % 63.2 % (39.0-77.0); PLATELET COUNT 241 10^3/UL (140-415); RED BLOOD COUNT 2.98 10^6/ul (4.20-5.40); RED CELL DISTRIBUTION WIDTH 18.2 % (11.5-14.5)
[2018-10-06] MEDS: ESCITALOPRAM 10 MG TAB PO (08:06)
[2018-10-06] MEDS: LACTOBACILLUS RHAMNOSUS CAP PO ×2 (08:07→20:51)
[2018-10-06] MEDS: MAGNESIUM OXIDE 400 MG TAB PO ×3 (08:07→20:50)
[2018-10-06] MEDS: ASPIRIN 325 MG TAB PO (08:08)
[2018-10-06] MEDS: POTASSIUM CHLORIDE 20 MEQ POWDER FOR ORAL SOLN PO (08:08)
[2018-10-06] MEDS: INSULIN ASPART [NOVOLOG] 3 ML PEN SC ×7 (08:13→21:00)
[2018-10-06] MEDS: ENOXAPARIN 30 MG/0.3 ML SYG SC (08:14)
[2018-10-06] MEDS: AMMONIUM LACTATE 12% 225 GM LOT TOP (08:15)
[2018-10-06] MEDS: SODIUM HYPOCHLORITE (1/40) 1 LITER BTL IRR (08:15)
[2018-10-06] MEDS: traZODone 50 MG TAB PO (20:50)
[2018-10-06] MEDS: INSULIN GLARGINE [LANTus] (100 UNITS/ML) SYG SC (21:28)
[2018-10-07] MEDS: PIPER-TAZO 3.375 GM IV (PMX) 100 ML IVPB ×2 (00:29→06:06)
[2018-10-07] MEDS: ACCU-CHEK XX (02:00)
[2018-10-07 05:51] LABS: WHITE BLOOD COUNT 5.2 10^3/ul (4.8-10.8)
[2018-10-07 05:51] LABS: HEMATOCRIT 28.7 % (37.0-47.0); HEMOGLOBIN 8.8 g/dl (12.0-16.0); MEAN CORPUSCULAR HEMOGLOBIN 27.7 pg (29.0-33.0); MEAN CORPUSCULAR HGB CONC 30.7 g/dl (32.0-37.0); MEAN CORPUSCULAR VOLUME 90.3 fl (82.0-101.0); MEAN PLATELET VOLUME 9.2 fl (7.4-10.4); PLATELET COUNT 249 10^3/UL (140-415); RED BLOOD COUNT 3.18 10^6/ul (4.20-5.40); RED CELL DISTRIBUTION WIDTH 18.2 % (11.5-14.5)
[2018-10-07 05:57] LABS: ADD MAN DIFF? YES; POSITIVE DIFF @See below
[2018-10-07] MEDS: morphine 2 MG INJ IV ×7 (06:08→21:04)
[2018-10-07 06:27] LABS: ANION GAP 4 (5-13); BLOOD UREA NITROGEN 19 mg/dl (7-20); CALCIUM 8.9 mg/dl (8.4-10.2); CARBON DIOXIDE 29 mmol/L (21-31); CHLORIDE 105 mmol/L (97-110); CREATININE 0.67 mg/dl (0.44-1.00); Estimated GFR > 60 mL/min (>60); GLUCOSE 156 mg/dl (70-220); POTASSIUM 4.5 mmol/L (3.5-5.1); SODIUM 138 mmol/L (135-144)
[2018-10-07 06:29] LABS: PHOSPHORUS 4.3 mg/dl (2.5-4.9)
[2018-10-07 06:29] LABS: MAGNESIUM 2.4 mg/dl (1.7-2.5)
[2018-10-07 07:45] LABS: ANISOCYTOSIS 1+ (0-0); BAND NEUTROPHILS #M 0.1 10^3/ul (0.0-0.6); BAND NEUTROPHILS % (M) 2 % (0-4); EOSINOPHILS % (M) 1 % (0-7); HYPOCHROMASIA 1+ (0-0); LYMPHOCYTES #M 0.5 10^3/ul (0.8-2.9); LYMPHOCYTES % (M) 11 % (15-51); MONOCYTE #M 0.3 10^3/ul (0.3-0.9); MONOCYTES % (M) 6 % (0-11); PLASMAC%(M) 1 % (0); PLATELET ESTIMATE NORMAL; SEG NEUT #M 4.1 10^3/ul (1.6-7.5); SEGMENTED NEUTROPHILS (M) % 79 % (39-77); SMUDGE%M 9 % (0-0)
[2018-10-07] MEDS: INSULIN ASPART [NOVOLOG] 3 ML PEN SC ×7 (08:17→20:42)
[2018-10-07] MEDS: ENOXAPARIN 30 MG/0.3 ML SYG SC (08:50)
[2018-10-07] MEDS: MAGNESIUM OXIDE 400 MG TAB PO ×3 (08:50→20:39)
[2018-10-07] MEDS: ASPIRIN 325 MG TAB PO (08:51)
[2018-10-07] MEDS: LACTOBACILLUS RHAMNOSUS CAP PO ×2 (08:51→20:39)
[2018-10-07] MEDS: ESCITALOPRAM 10 MG TAB PO (08:51)
[2018-10-07] MEDS: POTASSIUM CHLORIDE 20 MEQ POWDER FOR ORAL SOLN PO (08:51)
[2018-10-07] MEDS: SODIUM HYPOCHLORITE (1/40) 1 LITER BTL IRR (09:00)
[2018-10-07] MEDS: AMMONIUM LACTATE 12% 225 GM LOT TOP (09:00)
[2018-10-07] MEDS ORDERED: VANCOMYCIN IV PER PHARMACY XX (13:00)
[2018-10-07] MEDS: ERTAPENEM SODIUM 1 GM in SOD CHLORIDE 0.9% 100 ML IVPB (15:22)
[2018-10-07] MEDS: VANCOMYCIN 1 GM 250 ML IVPB (16:15)
[2018-10-07] MEDS: INSULIN GLARGINE [LANTus] (100 UNITS/ML) SYG SC (20:39)
[2018-10-07] MEDS: traZODone 50 MG TAB PO (20:39)
[2018-10-08] MEDS: ACCU-CHEK XX (01:20)
[2018-10-08] MEDS: VANCOMYCIN 1 GM 250 ML IVPB ×2 (02:56→18:04)
[2018-10-08 05:35] LABS: ADD MAN DIFF? NO
[2018-10-08 05:39] LABS: BASOPHILS % 0.6 % (0.0-2.0); EOSINOPHILS # 0.1 10^3/ul (0.0-0.5); HEMATOCRIT 30.4 % (37.0-47.0); HEMOGLOBIN 9.1 g/dl (12.0-16.0); LYMPHOCYTES % 21.1 % (15.0-51.0); MEAN CORPUSCULAR HEMOGLOBIN 27.7 pg (29.0-33.0); MEAN CORPUSCULAR HGB CONC 29.9 g/dl (32.0-37.0); MEAN CORPUSCULAR VOLUME 92.4 fl (82.0-101.0); MEAN PLATELET VOLUME 8.6 fl (7.4-10.4); MONOCYTE # 0.4 10^3/ul (0.3-0.9); MONOCYTES % 7.9 % (0.0-11.0); NEUTROPHIL # 3.2 10^3/ul (1.6-7.5); PLATELET COUNT 272 10^3/UL (140-415); RED BLOOD COUNT 3.29 10^6/ul (4.20-5.40); RED CELL DISTRIBUTION WIDTH 18.6 % (11.5-14.5)
[2018-10-08 05:39] LABS: WHITE BLOOD COUNT 4.7 10^3/ul (4.8-10.8)
[2018-10-08 06:07] LABS: PHOSPHORUS 4.1 mg/dl (2.5-4.9)
[2018-10-08 06:07] LABS: MAGNESIUM 2.3 mg/dl (1.7-2.5)
[2018-10-08 06:17] LABS: INR 0.93; PROTIME 12.6 Sec (11.9-14.9)
[2018-10-08 06:18] LABS: PARTIAL THROMBOPLASTIN TIME 27.5 Sec (23.0-35.0)
[2018-10-08 06:19] LABS: ANION GAP 5 (5-13); BLOOD UREA NITROGEN 20 mg/dl (7-20); CALCIUM 8.9 mg/dl (8.4-10.2); CARBON DIOXIDE 27 mmol/L (21-31); CHLORIDE 107 mmol/L (97-110); CREATININE 0.58 mg/dl (0.44-1.00); Estimated GFR > 60 mL/min (>60); GLUCOSE 127 mg/dl (70-220); POTASSIUM 4.3 mmol/L (3.5-5.1); SODIUM 139 mmol/L (135-144)
[2018-10-08] MEDS: INSULIN ASPART [NOVOLOG] 3 ML PEN SC ×7 (08:13→20:24)
[2018-10-08] MEDS: ENOXAPARIN 30 MG/0.3 ML SYG SC (08:40)
[2018-10-08] MEDS: morphine 2 MG INJ IV ×4 (08:57→20:26)
[2018-10-08] MEDS: LACTOBACILLUS RHAMNOSUS CAP PO ×2 (08:59→20:23)
[2018-10-08] MEDS: MAGNESIUM OXIDE 400 MG TAB PO ×3 (09:00→20:23)
[2018-10-08] MEDS: ESCITALOPRAM 10 MG TAB PO (09:00)
[2018-10-08] MEDS: ASPIRIN 325 MG TAB PO (09:00)
[2018-10-08] MEDS: POTASSIUM CHLORIDE 20 MEQ POWDER FOR ORAL SOLN PO (09:00)
[2018-10-08] MEDS: AMMONIUM LACTATE 12% 225 GM LOT TOP (09:01)
[2018-10-08] MEDS: SODIUM HYPOCHLORITE (1/40) 1 LITER BTL IRR (09:06)
[2018-10-08] MEDS: LIDOCAINE 1% (MPF) 5 ML VIAL SC (14:30)
[2018-10-08] MEDS: ERTAPENEM SODIUM 1 GM in SOD CHLORIDE 0.9% 100 ML IVPB (15:48)
[2018-10-08] MEDS: traZODone 50 MG TAB PO (20:23)
[2018-10-08] MEDS: INSULIN GLARGINE [LANTus] (100 UNITS/ML) SYG SC (20:32)
[2018-10-09] MEDS: morphine 2 MG INJ IV ×5 (00:01→18:23)
[2018-10-09] MEDS: ACCU-CHEK XX (01:08)
[2018-10-09] MEDS: VANCOMYCIN 1 GM 250 ML IVPB ×2 (02:19→15:23)
[2018-10-09 07:22] LABS: ADD MAN DIFF? NO
[2018-10-09 07:27] LABS: BASOPHILS % 0.4 % (0.0-2.0); EOSINOPHILS # 0.1 10^3/ul (0.0-0.5); EOSINOPHILS % 2.8 % (0.0-7.0); HEMATOCRIT 28.3 % (37.0-47.0); HEMOGLOBIN 8.6 g/dl (12.0-16.0); LYMPHOCYTES # 1.1 10^3/ul (0.8-2.9); LYMPHOCYTES % 21.7 % (15.0-51.0); MEAN CORPUSCULAR HEMOGLOBIN 27.9 pg (29.0-33.0); MEAN CORPUSCULAR HGB CONC 30.4 g/dl (32.0-37.0); MEAN CORPUSCULAR VOLUME 91.9 fl (82.0-101.0); MEAN PLATELET VOLUME 8.6 fl (7.4-10.4); MONOCYTE # 0.4 10^3/ul (0.3-0.9); MONOCYTES % 7.5 % (0.0-11.0); NEUTROPHIL # 3.4 10^3/ul (1.6-7.5); PLATELET COUNT 282 10^3/UL (140-415); RED BLOOD COUNT 3.08 10^6/ul (4.20-5.40); RED CELL DISTRIBUTION WIDTH 18.5 % (11.5-14.5)
[2018-10-09 07:27] LABS: WHITE BLOOD COUNT 5.1 10^3/ul (4.8-10.8)
[2018-10-09 07:46] LABS: MAGNESIUM 2.1 mg/dl (1.7-2.5)
[2018-10-09 07:46] LABS: PHOSPHORUS 3.7 mg/dl (2.5-4.9)
[2018-10-09 07:53] LABS: ANION GAP 5 (5-13); BLOOD UREA NITROGEN 21 mg/dl (7-20); CALCIUM 8.8 mg/dl (8.4-10.2); CARBON DIOXIDE 27 mmol/L (21-31); CHLORIDE 109 mmol/L (97-110); Estimated GFR > 60 mL/min (>60); GLUCOSE 81 mg/dl (70-220); POTASSIUM 3.8 mmol/L (3.5-5.1); SODIUM 141 mmol/L (135-144)
[2018-10-09] MEDS: INSULIN ASPART [NOVOLOG] 3 ML PEN SC ×7 (08:00→20:05)
[2018-10-09] MEDS: SODIUM HYPOCHLORITE (1/40) 1 LITER BTL IRR (09:00)
[2018-10-09] MEDS: ENOXAPARIN 30 MG/0.3 ML SYG SC (09:00)
[2018-10-09] MEDS: ASPIRIN 325 MG TAB PO (09:02)
[2018-10-09] MEDS: ESCITALOPRAM 10 MG TAB PO (09:02)
[2018-10-09] MEDS: LACTOBACILLUS RHAMNOSUS CAP PO ×2 (09:03→20:04)
[2018-10-09] MEDS: AMMONIUM LACTATE 12% 225 GM LOT TOP (09:03)
[2018-10-09] MEDS: MAGNESIUM OXIDE 400 MG TAB PO ×3 (09:03→20:05)
[2018-10-09] MEDS: POTASSIUM CHLORIDE 20 MEQ POWDER FOR ORAL SOLN PO (09:03)
[2018-10-09] MEDS: ERTAPENEM SODIUM 1 GM in SOD CHLORIDE 0.9% 100 ML IVPB (14:27)
[2018-10-09 14:57] LABS: VANCOMYCIN,TROUGH 16.9 ug/ml (10.0-20.0)
[2018-10-09] MEDS: traZODone 50 MG TAB PO (20:04)
[2018-10-09] MEDS: INSULIN GLARGINE [LANTus] (100 UNITS/ML) SYG SC (20:04)
[2018-10-10] MEDS: ACCU-CHEK XX (01:05)
[2018-10-10] MEDS: VANCOMYCIN 1 GM 250 ML IVPB ×2 (02:01→15:57)
[2018-10-10 06:51] LABS: ADD MAN DIFF? NO
[2018-10-10 06:58] LABS: BASOPHILS % 0.6 % (0.0-2.0); EOSINOPHILS # 0.1 10^3/ul (0.0-0.5); EOSINOPHILS % 2.8 % (0.0-7.0); HEMATOCRIT 28.5 % (37.0-47.0); HEMOGLOBIN 8.6 g/dl (12.0-16.0); LYMPHOCYTES # 1.2 10^3/ul (0.8-2.9); MEAN CORPUSCULAR HEMOGLOBIN 28.1 pg (29.0-33.0); MEAN CORPUSCULAR HGB CONC 30.2 g/dl (32.0-37.0); MEAN CORPUSCULAR VOLUME 93.1 fl (82.0-101.0); MEAN PLATELET VOLUME 8.6 fl (7.4-10.4); MONOCYTE # 0.4 10^3/ul (0.3-0.9); MONOCYTES % 8.8 % (0.0-11.0); NEUTROPHIL # 3.2 10^3/ul (1.6-7.5); NEUTROPHILS % 64.2 % (39.0-77.0); PLATELET COUNT 274 10^3/UL (140-415); RED BLOOD COUNT 3.06 10^6/ul (4.20-5.40); RED CELL DISTRIBUTION WIDTH 19.2 % (11.5-14.5)
[2018-10-10 07:27] LABS: ANION GAP 3 (5-13); BLOOD UREA NITROGEN 19 mg/dl (7-20); CALCIUM 8.7 mg/dl (8.4-10.2); CARBON DIOXIDE 27 mmol/L (21-31); CHLORIDE 108 mmol/L (97-110); CREATININE 0.52 mg/dl (0.44-1.00); Estimated GFR > 60 mL/min (>60); GLUCOSE 143 mg/dl (70-220); POTASSIUM 4.1 mmol/L (3.5-5.1); SODIUM 138 mmol/L (135-144)
[2018-10-10 07:47] LABS: MAGNESIUM 2.1 mg/dl (1.7-2.5)
[2018-10-10 07:47] LABS: PHOSPHORUS 3.9 mg/dl (2.5-4.9)
[2018-10-10] MEDS: INSULIN ASPART [NOVOLOG] 3 ML PEN SC ×7 (08:00→20:15)
[2018-10-10] MEDS: POTASSIUM CHLORIDE 20 MEQ POWDER FOR ORAL SOLN PO (08:36)
[2018-10-10] MEDS: LACTOBACILLUS RHAMNOSUS CAP PO ×2 (08:37→20:17)
[2018-10-10] MEDS: ASPIRIN 325 MG TAB PO (08:37)
[2018-10-10] MEDS: ESCITALOPRAM 10 MG TAB PO (08:37)
[2018-10-10] MEDS: SODIUM HYPOCHLORITE (1/40) 1 LITER BTL IRR (08:37)
[2018-10-10] MEDS: MAGNESIUM OXIDE 400 MG TAB PO ×3 (08:37→20:17)
[2018-10-10] MEDS: AMMONIUM LACTATE 12% 225 GM LOT TOP (08:38)
[2018-10-10] MEDS: ENOXAPARIN 30 MG/0.3 ML SYG SC (08:40)
[2018-10-10] MEDS: morphine 2 MG INJ IV ×4 (09:30→19:27)
[2018-10-10] MEDS: ERTAPENEM SODIUM 1 GM in SOD CHLORIDE 0.9% 100 ML IVPB (15:21)
[2018-10-10] MEDS: INSULIN GLARGINE [LANTus] (100 UNITS/ML) SYG SC (20:16)
[2018-10-10] MEDS: traZODone 50 MG TAB PO (20:16)
[2018-10-11] MEDS: ACCU-CHEK XX (02:00)
[2018-10-11] MEDS: VANCOMYCIN 1 GM 250 ML IVPB ×2 (02:13→15:32)
[2018-10-11 05:30] LABS: ADD MAN DIFF? NO
[2018-10-11 05:49] LABS: BASOPHILS % 0.4 % (0.0-2.0); EOSINOPHILS # 0.1 10^3/ul (0.0-0.5); EOSINOPHILS % 2.8 % (0.0-7.0); HEMATOCRIT 28.6 % (37.0-47.0); HEMOGLOBIN 8.6 g/dl (12.0-16.0); LYMPHOCYTES # 1.2 10^3/ul (0.8-2.9); LYMPHOCYTES % 23.2 % (15.0-51.0); MEAN CORPUSCULAR HEMOGLOBIN 28.1 pg (29.0-33.0); MEAN CORPUSCULAR HGB CONC 30.1 g/dl (32.0-37.0); MEAN CORPUSCULAR VOLUME 93.5 fl (82.0-101.0); MEAN PLATELET VOLUME 8.8 fl (7.4-10.4); MONOCYTE # 0.4 10^3/ul (0.3-0.9); MONOCYTES % 8.2 % (0.0-11.0); NEUTROPHIL # 3.2 10^3/ul (1.6-7.5); NEUTROPHILS % 64.4 % (39.0-77.0); PLATELET COUNT 282 10^3/UL (140-415); RED BLOOD COUNT 3.06 10^6/ul (4.20-5.40); RED CELL DISTRIBUTION WIDTH 18.7 % (11.5-14.5)
[2018-10-11 05:58] LABS: PHOSPHORUS 3.9 mg/dl (2.5-4.9)
[2018-10-11 06:16] LABS: ANION GAP 4 (5-13); BLOOD UREA NITROGEN 21 mg/dl (7-20); CALCIUM 8.5 mg/dl (8.4-10.2); CARBON DIOXIDE 28 mmol/L (21-31); CHLORIDE 108 mmol/L (97-110); CREATININE 0.68 mg/dl (0.44-1.00); Estimated GFR > 60 mL/min (>60); GLUCOSE 202 mg/dl (70-220); POTASSIUM 3.9 mmol/L (3.5-5.1); SODIUM 140 mmol/L (135-144)
[2018-10-11] MEDS: INSULIN ASPART [NOVOLOG] 3 ML PEN SC ×7 (08:22→20:21)
[2018-10-11] MEDS: ENOXAPARIN 30 MG/0.3 ML SYG SC (08:26)
[2018-10-11] MEDS: ASPIRIN 325 MG TAB PO (08:31)
[2018-10-11] MEDS: POTASSIUM CHLORIDE 20 MEQ POWDER FOR ORAL SOLN PO (08:31)
[2018-10-11] MEDS: MAGNESIUM OXIDE 400 MG TAB PO ×3 (08:31→20:20)
[2018-10-11] MEDS: LACTOBACILLUS RHAMNOSUS CAP PO ×2 (08:31→20:20)
[2018-10-11] MEDS: CHOLECALCIFEROL 1,000 UNIT TAB PO (08:31)
[2018-10-11] MEDS: ESCITALOPRAM 10 MG TAB PO (08:31)
[2018-10-11] MEDS: SODIUM HYPOCHLORITE (1/40) 1 LITER BTL IRR (09:00)
[2018-10-11] MEDS: AMMONIUM LACTATE 12% 225 GM LOT TOP (09:00)
[2018-10-11] MEDS: morphine 2 MG INJ IV ×2 (09:18→20:27)
[2018-10-11] MEDS: ERTAPENEM SODIUM 1 GM in SOD CHLORIDE 0.9% 100 ML IVPB (14:51)
[2018-10-11] MEDS: traZODone 50 MG TAB PO (20:20)
[2018-10-11] MEDS: INSULIN GLARGINE [LANTus] (100 UNITS/ML) SYG SC (20:21)
[2018-10-12] MEDS: ACCU-CHEK XX (02:00)
[2018-10-12 02:21] LABS: HEMATOCRIT 28.2 % (37.0-47.0); HEMOGLOBIN 8.4 g/dl (12.0-16.0); MEAN CORPUSCULAR HEMOGLOBIN 27.8 pg (29.0-33.0); MEAN CORPUSCULAR HGB CONC 29.8 g/dl (32.0-37.0); MEAN CORPUSCULAR VOLUME 93.4 fl (82.0-101.0); MEAN PLATELET VOLUME 8.6 fl (7.4-10.4); PLATELET COUNT 279 10^3/UL (140-415); RED BLOOD COUNT 3.02 10^6/ul (4.20-5.40); RED CELL DISTRIBUTION WIDTH 18.9 % (11.5-14.5)
[2018-10-12 02:21] LABS: WHITE BLOOD COUNT 4.5 10^3/ul (4.8-10.8)
[2018-10-12 02:37] LABS: POSITIVE DIFF @See below
[2018-10-12 02:38] LABS: ADD MAN DIFF? YES
[2018-10-12 02:40] LABS: ALANINE AMINOTRANSFERASE 193 IU/L (13-69); ALBUMIN 2.8 g/dl (3.3-4.9); ALBUMIN/GLOBULIN RATIO 0.68; ALKALINE PHOSPHATASE 348 IU/L (42-121); ANION GAP 7 (5-13); ASPARTATE AMINO TRANSFERASE 216 IU/L (15-46); BILIRUBIN,INDIRECT 0.2 mg/dl (0-1.1); BILIRUBIN,TOTAL 0.2 mg/dl (0.2-1.3); BLOOD UREA NITROGEN 23 mg/dl (7-20); CALCIUM 8.6 mg/dl (8.4-10.2); CARBON DIOXIDE 28 mmol/L (21-31); CHLORIDE 106 mmol/L (97-110); CREATININE 0.65 mg/dl (0.44-1.00); Estimated GFR > 60 mL/min (>60); GLUCOSE 164 mg/dl (70-220); POTASSIUM 3.6 mmol/L (3.5-5.1); SODIUM 141 mmol/L (135-144); TOTAL PROTEIN 6.9 g/dl (6.1-8.1)
[2018-10-12 02:44] LABS: VANCOMYCIN,TROUGH 18.6 ug/ml (10.0-20.0)
[2018-10-12] MEDS: VANCOMYCIN 1 GM 250 ML IVPB (03:06)
[2018-10-12 03:08] LABS: EOSINOPHILS % (M) 5 % (0-7); LYMPHOCYTES #M 1.2 10^3/ul (0.8-2.9); LYMPHOCYTES % (M) 27 % (15-51); MONOCYTE #M 0.2 10^3/ul (0.3-0.9); MONOCYTES % (M) 5 % (0-11); PLATELET ESTIMATE NORMAL; POLYCHROMASIA 3+ (0-0); SEGMENTED NEUTROPHILS (M) % 63 % (39-77); SMUDGE%M 4 % (0-0)
[2018-10-12] MEDS: morphine 2 MG INJ IV ×3 (07:46→12:34)
[2018-10-12] MEDS: INSULIN ASPART [NOVOLOG] 3 ML PEN SC ×4 (08:29→12:28)
[2018-10-12] MEDS: ENOXAPARIN 30 MG/0.3 ML SYG SC (08:30)
[2018-10-12] MEDS: CHOLECALCIFEROL 1,000 UNIT TAB PO (08:32)
[2018-10-12] MEDS: ESCITALOPRAM 10 MG TAB PO (08:32)
[2018-10-12] MEDS: POTASSIUM CHLORIDE 20 MEQ POWDER FOR ORAL SOLN PO (08:32)
[2018-10-12] MEDS: ASPIRIN 325 MG TAB PO (08:32)
[2018-10-12] MEDS: MAGNESIUM OXIDE 400 MG TAB PO ×2 (08:32→12:27)
[2018-10-12] MEDS: LACTOBACILLUS RHAMNOSUS CAP PO (08:32)
[2018-10-12] MEDS: ERTAPENEM SODIUM 1 GM in SOD CHLORIDE 0.9% 100 ML IVPB (13:58)
[2018-10-12] MEDS ORDERED: VANCOMYCIN 750 MG (PMX) 250 ML IVPB (15:00)
== END 2018-10-12 16:40 | DRG 623 ==
LOC: ICU 10-01 07:00 → 6WM 10-02 14:31 → 5EC 10-08 15:00 → E/R 14:58 → 5EC 10-08 15:08 → 2NE 10-04 22:20 → TEL 17:33
PROC: 047K3ZZ Dilation of Right Femoral Artery, Percutaneous Approach (ICD-10-PCS; 2018-09-29 11:00)
PROC: B41DYZZ Fluoroscopy of Aorta and Bilateral Lower Extremity Arteries using Other Contrast (ICD-10-PCS; 2018-09-29 11:00)
PROC: 0JBQ0ZZ Excision of Right Foot Subcutaneous Tissue and Fascia, Open Approach (ICD-10-PCS; principal; 2018-09-29 11:25)
PROC: 0JBR0ZZ Excision of Left Foot Subcutaneous Tissue and Fascia, Open Approach (ICD-10-PCS; 2018-09-29 11:25)
PROC: 0JBR0ZZ Excision of Left Foot Subcutaneous Tissue and Fascia, Open Approach (ICD-10-PCS; 2018-09-29 11:25)
PROC: 0QBM0ZX Excision of Left Tarsal, Open Approach, Diagnostic (ICD-10-PCS; 2018-09-29 11:25)
PROC: 0HRMXK3 Replacement of Right Foot Skin with Nonautologous Tissue Substitute, Full Thickness, External Approach (ICD-10-PCS; 2018-09-29 11:25)
PROC: 0HRNXK3 Replacement of Left Foot Skin with Nonautologous Tissue Substitute, Full Thickness, External Approach (ICD-10-PCS; 2018-09-29 11:25)
PROC: 0JBR0ZZ Excision of Left Foot Subcutaneous Tissue and Fascia, Open Approach (ICD-10-PCS; 2018-09-29 11:25)
PROC: 0JBQ0ZZ Excision of Right Foot Subcutaneous Tissue and Fascia, Open Approach (ICD-10-PCS; 2018-09-29 11:25)
PROC: 041L09L Bypass Left Femoral Artery to Popliteal Artery with Autologous Venous Tissue, Open Approach (ICD-10-PCS; 2018-09-29 11:25)
PROC: 06BQ0ZZ Excision of Left Saphenous Vein, Open Approach (ICD-10-PCS; 2018-09-29 11:25)
PROC: 02HV33Z Insertion of Infusion Device into Superior Vena Cava, Percutaneous Approach (ICD-10-PCS; 2018-09-29 11:25)
PROC: 30233N1 Transfusion of Nonautologous Red Blood Cells into Peripheral Vein, Percutaneous Approach (ICD-10-PCS; 2018-09-29 11:25)
DX: E11.621 Type 2 diabetes mellitus with foot ulcer (principal); L03.90 Cellulitis, unspecified; L97.429 Non-pressure chronic ulcer of left heel and midfoot with unspecified severity; L97.419 Non-pressure chronic ulcer of right heel and midfoot with unspecified severity; F33.2 Major depressive disorder, recurrent severe without psychotic features; L03.115 Cellulitis of right lower limb; L03.116 Cellulitis of left lower limb; I70.92 Chronic total occlusion of artery of the extremities; E11.51 Type 2 diabetes mellitus with diabetic peripheral angiopathy without gangrene; E11.65 Type 2 diabetes mellitus with hyperglycemia; R62.7 Adult failure to thrive; J44.9 Chronic obstructive pulmonary disease, unspecified; D64.9 Anemia, unspecified; E11.40 Type 2 diabetes mellitus with diabetic neuropathy, unspecified; R41.0 Disorientation, unspecified; B19.20 Unspecified viral hepatitis C without hepatic coma; E11.42 Type 2 diabetes mellitus with diabetic polyneuropathy; F17.200 Nicotine dependence, unspecified, uncomplicated; I70.202 Unspecified atherosclerosis of native arteries of extremities, left leg; Z91.19 Patient's noncompliance with other medical treatment and regimen; Z91.11 Patient's noncompliance with dietary regimen; Z79.4 Long term (current) use of insulin; Z89.432 Acquired absence of left foot
CPT/HCPCS: 36415; 36430; 36569; 37224; 71045; 73610; 73610-RT; 73630-LT; 73721; 75630; 76700; 76937; 80048; 80053; 80061; 80202; 81001; 82140; 82306; 82652; 82962; 83036; 83605; 83735; 84100; 84443; 84484; 85025; 85610; 85651; 85730; 86140; 86704; 86709; 86803; 86850; 86900; 86901; 86920; 87040-91; 87070; 87075; 87081; 87086; 87116; 87340; 88304; 90686; 93005; 93306; 93922; 93970; 96374; 99285-25